=== PATIENT | male | born 1960 | race Caucasian/White ===

== ENCOUNTER 2024-05-15 00:11 | Day surgery (SDC) | payer BC, SELFPAY ==
[2024-05-07 09:58] VITALS: BMI 25.0
[2024-05-15 10:35] VITALS: BP 141/87; PULSE 58; RESP 16; TEMP 35.8; O2SAT 98; BMI 25.0
[2024-05-15] MEDS: LACTATED RINGERS 1,000 ML 150 ML IV CONT (10:55)
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
[2024-05-15 12:18] VITALS: BP 89/50; PULSE 53; RESP 15; O2SAT 99
[2024-05-15 12:28] VITALS: BP 91/50; PULSE 53; RESP 14; O2SAT 99
[2024-05-15 12:38] VITALS: BP 104/61; PULSE 52; RESP 14; O2SAT 99
== END 2024-05-15 12:48 | disposition home or self-care (01) ==
PROVIDERS: PCP Physician Assistant Medical; Visit Provider Internal Medicine Gastroenterology
PROC: 0DJD8ZZ Inspection of Lower Intestinal Tract, Via Natural or Artificial Opening Endoscopic (ICD-10-PCS; CPT 45378; principal; 2024-05-15 11:30)
DX: Z12.11 Encounter for screening for malignant neoplasm of colon (principal); K63.5 Polyp of colon; K64.8 Other hemorrhoids; Z87.891 Personal history of nicotine dependence
CPT/HCPCS: 45385; 88305; J2003; J2371; J2704; J7120